=== PATIENT | female | born 1950 | race Caucasian/White ===

== ENCOUNTER 2017-05-19 08:39 | Observation (INO) ==
[2017-05-19] MEDS ORDERED: Aspirin 81 MG TAB.CHEW PO ONE (08:51)
[2017-05-19] MEDS ORDERED: Nitroglycerin 0.4 MG TAB.SUBL SL ONE (08:51)
[2017-05-19 09:10] LABS: Hematocrit 41.5 % (35.3-44.9); Hemoglobin 14.1 g/dL (11.5-15.4); Immature Platelets 5.9 % (1.1-6.1); Mean Corpuscular Hemoglobin 31.5 pg (28.0-33.3); Mean Corpuscular Volume 92.6 fL (83.0-100.0); Mean Platelet Volume 10.6 fL (9.4-12.4); Platelet Count 223 K/mcL (140-400); Red Blood Count 4.48 M/mcL (3.82-4.97); Red Cell Distribution Width 12.5 % (11.5-14.5)
[2017-05-19 09:14] LABS: Prothrombin Time 10.2 Seconds (9.4-12.1)
[2017-05-19 09:17] LABS: Activated Partial Thrombo Time 25.6 Seconds (26.0-36.0)
[2017-05-19 09:22] LABS: BUN/Creatinine Ratio 9 (6-26); Blood Urea Nitrogen 7 mg/dL (7-20); Calcium 9.6 mg/dL (8.6-10.8); Carbon Dioxide 20 mEq/L (19-29); Chloride 110 mEq/L (98-109); Glucose 106 mg/dL (70-99); Osmolality,Calculated 286 (280-300); Potassium 4.2 mEq/L (3.5-4.5); Sodium 139 mEq/L (136-145); eGFR For African Americans > 60 (> 60); eGFR For Non-African Americans > 60 (> 60)
[2017-05-19 09:25] LABS: Albumin 3.4 g/dL (3.5-5.0); Bilirubin,Direct 0.2 mg/dL (0.0-0.5); Bilirubin,Indirect 0.4 mg/dL (0.0-1.2); Bilirubin,Total 0.6 mg/dL (0.2-1.2); Globulin 3.3 g/dL (2.4-3.5); Total Protein 6.7 g/dL (6.0-8.3)
--- NOTE | 2017-05-19 09:35 | Emergency Department Note ---
Disposition Clinical Impression: Elevated lipase Chest pain Qualifiers: Chest pain type: unspecified Qualified Code(s): R07.9 - Chest pain, unspecified Disposition: Admitted As Inpatient Condition: Fair Time of Disposition: 10:00 Chest Pain HPI - General Chief Complaint: ED Chest Pain Stated Complaint: chest pain Time Seen by Provider: 05/19/17 08:40 Source: patient Limitations: no limitations Vital Signs Reviewed: Yes Nursing Notes Reviewed: Yes - History of Present Illness HPI Narrative: Patient is a 66-year-old female who presents to [facility] ED with a chief complaint of chest pain. States it is located in the epigastric region and she had woken up with a burning sensation that then radiated up into her chest and up her neck. She states she stood up and the pain intensified. She also had some nausea, no vomiting. Chest pain has been persistent. Past medical history significant for CAD with 3 stents. States last time she followed up with a interpreter translator was approximately 3 years ago. She is has not had any testing done since then. States she takes a daily baby aspirin and put a grill. No other blood thinning medications. Denies any abdominal pain, problems with urination or bowel movements. No recent fevers, chills, cough, nasal congestion. Pt complaint: chest pain Onset (ago): hour(s) Duration: constant Onset: during rest Pain Location: substernal Severity: moderate Severity scale (1-10): 3 Quality: aching Pain Radiation: LUE Improves with: nitroglycerin Worsens with: nothing Associated symptoms: Reports: nausea. Denies: dyspnea, fever, cough Treatments prior to arrival chest pain: aspirin (81mg) - Related Data Home Medications Medication Instructions Recorded Confirmed Aspirin Enteric Coated [Aspirin EC] 81 mg PO DAILY 05/19/17 05/19/17 Cholecalciferol (Vitamin D3) 2,000 unit PO DAILY 05/19/17 05/19/17 [Vitamin D] Clopidogrel [Plavix] 75 mg PO DAILY 05/19/17 05/19/17 Glucosamine Sulfate Dipot Chlr 2,000 mg PO DAILY 05/19/17 05/19/17 [Glucosamine] Isosorbide MONOnitrate (24 HR) 30 mg PO DAILY 05/19/17 05/19/17 [Imdur] Lisinopril [Zestril] 5 mg PO DAILY 05/19/17 05/19/17 Meloxicam [Mobic] 15 mg PO DAILY PRN 05/19/17 05/19/17 Metoprolol [Lopressor] 12.5 mg PO BID 05/19/17 05/19/17 Multivitamin [Multivitamins] 1 each PO DAILY 05/19/17 05/19/17 Nitroglycerin [Nitrostat] 0.4 mg SL Q5M 05/19/17 05/19/17 [place]-3/Dha/Epa/Fish Oil [Fish Oil 1,000 mg PO DAILY 05/19/17 05/19/17 1,000 mg Softgel] Omeprazole [PriLOSEC] 20 mg PO DAILY 05/19/17 05/19/17 Pravastatin Sodium [Pravachol] 40 mg PO HS 05/19/17 05/19/17 Zoledronic Acid (Reclast) [Reclast 5 mg IV [id number] 05/19/17 05/19/17 Premix 5 MG/100 ML] Allergies Allergy/AdvReac Type Severity Reaction Status Date / Time No Known Allergies Allergy Verified 04/22/17 15:28 All systems ED: reviewed and negative except as stated. Chest Pain PMH - Past Medical History Medical history: Reports: COPD, myocardial infarction Surgical history: Reports: non-contributory Psychiatric history: Reports: no psych history - Social History Smoking Status: Never smoker Alcohol use: Reports: none Drug use: Reports: none Physical Exam CONSTITUTIONAL: Well-appearing; well-nourished; A&O X 3, in no apparent distress HEAD: Normocephalic; atraumatic EYES: PERRL, no scleral icterus NOSE: The nose is normal in appearance without rhinorrhea NECK: No JVD or distended neck veins RESP: Normal chest excursion with respiration; breath sounds clear and equal bilaterally; no wheezes, rhonchi, or rales CARD: Regular rhythm, without murmurs, rub or gallop ABD: Non-distended; mild epigastric abd pain, soft, without rigidity, rebound or guarding,no pulsatile mass CHEST: No pain with palpation SKIN: Normal for age and race; warm and dry without diaphoresis ; no apparent lesions EXTREMITIES: Pulses are 2 plus and equal times 4 extremities, no peripheral edema or calf muscle pain - General Limitations: no limitations General appearance: alert, in no apparent distress Course Course Narrative: Patient seen and examined. Chest pain that started this morning at approximately 6 AM. Still having chest pain at this time. Aspirin and nitroglycerin ordered. Labs, EKG, chest x-ray ordered. We will reassess. - Reevaluation(s) Reevaluation #1: Patient did have some mild improvement with the nitroglycerin trial. However her pain did come back. We decided to place her on a nitro drip. Upon reassessment, her chest pain was gone. We will go ahead and admit for chest pain, rule out ACS. She also had a mildly elevated lipase at 112. Suspect this could be contributing to her symptoms as well. I discussed with hospitalist Dr. Madsen who has accepted patient for admission. Time: 10:00 Vital Signs Temperature 98.2 F 05/19/17 08:46 Pulse Rate 75 05/19/17 08:46 Respiratory Rate 18 05/19/17 08:46 Blood Pressure 180/105 05/19/17 08:46 O2 Sat by Pulse Oximetry 97 05/19/17 08:46 Temperature 98.2 F 05/19/17 08:46 Pulse Rate 63 05/19/17 09:45 Respiratory Rate 20 05/19/17 09:45 Blood Pressure 148/81 05/19/17 09:45 O2 Sat by Pulse Oximetry 93 05/19/17 09:45 Oxygen Delivery Oxygen Delivery Room Air Chest Pain - Medical Records Medical records reviewed: Yes I reviewed the patient's medical records. - Lab Data Lab results reviewed: Yes I reviewed the patient's lab results. Result diagrams: 05/19/17 09:03 05/19/17 09:03 Lab Results 05/19/17 05/19/17 05/19/17 Range/Units 09:03 09:03 09:03 WBC 4.9 (4.3-11.1) K/mcL RBC 4.48 (3.82-4.97) M/mcL Hgb 14.1 (11.5-15.4) g/dL Hct 41.5 (35.3-44.9) % MCV 92.6 (83.0-100.0) fL MCH 31.5 (28.0-33.3) pg MCHC 34.0 (31.6-35.5) g/dL RDW 12.5 (11.5-14.5) % Plt Count 223 (140-400) K/mcL MPV 10.6 (9.4-12.4) fL Seg Neutrophils % 36.0 % Lymphocytes % 30.0 % Monocytes % 26.0 % Eosinophils % 8.0 % Neutrophils # 1.8 (1.6-8.9) K/mcL Lymphocytes # 1.5 (0.6-4.6) K/mcL Monocytes # 1.3 (0.0-1.3) K/mcL Eosinophils # 0.4 (0.0-0.6) K/mcL Reactive Lymphocytes Present A (Not Present) Platelet Estimate Normal (Normal) Immature Plt Fraction 5.9 (1.1-6.1) % PT 10.2 (9.4-12.1) Seconds INR 1.0 APTT 25.6 L (26.0-36.0) Seconds Sodium (136-145) mEq/L Potassium (3.5-4.5) mEq/L Chloride (98-109) mEq/L Carbon Dioxide (19-29) mEq/L BUN (7-20) mg/dL Creatinine (0.57-1.11) mg/dL Est GFR ( Amer) (> 60) Est GFR (Non-Af Amer) (> 60) BUN/Creatinine Ratio (6-26) Glucose (70-99) mg/dL Calculated Osmolality (280-300) Calcium (8.6-10.8) mg/dL Total Bilirubin 0.6 (0.2-1.2) mg/dL Direct Bilirubin 0.2 (0.0-0.5) mg/dL Indirect Bilirubin 0.4 (0.0-1.2) mg/dL AST 29 (5-34) Units/L ALT 34 (0-55) Units/L Alkaline Phosphatase 80 (38-126) Units/L Troponin I (0-0.03) ng/mL Serum Total Protein 6.7 (6.0-8.3) g/dL Albumin 3.4 L (3.5-5.0) g/dL Globulin 3.3 (2.4-3.5) g/dL Albumin/Globulin Ratio 1.0 L (1.1-2.2) Lipase 112 H (8-78) Units/L 11/05/17 11/05/17 Range/Units 09:03 09:03 WBC (4.3-11.1) K/mcL RBC (3.82-4.97) M/mcL Hgb (11.5-15.4) g/dL Hct (35.3-44.9) % MCV (83.0-100.0) fL MCH (28.0-33.3) pg MCHC (31.6-35.5) g/dL RDW (11.5-14.5) % Plt Count (140-400) K/mcL MPV (9.4-12.4) fL Seg Neutrophils % % Lymphocytes % % Monocytes % % Eosinophils % % Neutrophils # (1.6-8.9) K/mcL Lymphocytes # (0.6-4.6) K/mcL Monocytes # (0.0-1.3) K/mcL Eosinophils # (0.0-0.6) K/mcL Reactive Lymphocytes (Not Present) Platelet Estimate (Normal) Immature Plt Fraction (1.1-6.1) % PT (9.4-12.1) Seconds INR APTT (26.0-36.0) Seconds Sodium 139 (136-145) mEq/L Potassium 4.2 (3.5-4.5) mEq/L Chloride 110 H (98-109) mEq/L Carbon Dioxide 20 (19-29) mEq/L BUN 7 (7-20) mg/dL Creatinine 0.74 (0.57-1.11) mg/dL Est GFR ( Amer) > 60 (> 60) Est GFR (Non-Af Amer) > 60 (> 60) BUN/Creatinine Ratio 9 (6-26) Glucose 106 H (70-99) mg/dL Calculated Osmolality 286 (280-300) Calcium 9.6 (8.6-10.8) mg/dL Total Bilirubin (0.2-1.2) mg/dL Direct Bilirubin (0.0-0.5) mg/dL Indirect Bilirubin (0.0-1.2) mg/dL AST (5-34) Units/L ALT (0-55) Units/L Alkaline Phosphatase (38-126) Units/L Troponin I 0.00 (0-0.03) ng/mL Serum Total Protein (6.0-8.3) g/dL Albumin (3.5-5.0) g/dL Globulin (2.4-3.5) g/dL Albumin/Globulin Ratio (1.1-2.2) Lipase (8-78) Units/L - Radiology Data Radiology results reviewed: Yes I reviewed the patient's radiology results. Chest X-Ray 05/19/17 08:51 IMPRESSION: No active cardiopulmonary disease D/ / Jai Dove MD / Jai Dove MD Interpreting Provider: Jai Dove MD - EKG Data EKG attestation: Yes I reviewed and interpreted this EKG. EKG results narrative: EKG done at 846 shows normal sinus rhythm with a rate of [address] elevation or depression. Normal axis. Unchanged from prior EKG done 2010. Heart Score - Score History: Moderately Suspicious EKG: Normal Age: Greater than 65 Risk Factors: Equal/Greater than 3 risk factor or history of atherosclerotic disease Troponin: Less than normal limit HEART Score Total: 5 Critical Care Time Critical Care Time: Yes Total Critical Care Time: 35 Attestation: Rectal care time managing patient's chest pain with nitro drip. Attestation Statement - Attestation Attestation: Patient was seen with resident physician. I reviewed the history, physical, assessment and plan, and agree with the findings. I also personally evaluated this patient and had [id number] time with this patient. 66-year-old female presents to the emergency department with chest pain since about 6 AM. Patient states the pain is lower portion of her chest, feels somewhat like indigestion, radiates up into her neck, and is similar to when she had a heart attack 5-7 years ago. Patient has 3 stents. Patient states that she has had some mild nausea with no vomiting. She denies fevers or chills. No shortness breath. On exam vital signs are stable. HEENT is unremarkable. Heart and lungs are normal. Abdomen is soft and nontender. Extremities unremarkable. Neurologically intact. Emergency [place] course. Patient was given a sublingual nitroglycerin which helped her chest pain. It returned shortly thereafter and she is placed on a nitro drip. She is also given aspirin. EKG did not reveal acute ischemic changes. Initial troponin was negative. An chest x-ray did not reveal acute abnormalities. Because the patient's risk factors she will be admitted to the hospital for his pain rule out and further evaluation and treatment. Hemodynamically she remained stable on the emergency department. Agree with resident physician assessment and plan. Vertigo care time 35 minutes managing patient's chest pain.
[2017-05-19 09:38] LABS: Eosinophils # 0.4 K/mcL (0.0-0.6); Lymphocytes # 1.5 K/mcL (0.6-4.6); Monocytes # 1.3 K/mcL (0.0-1.3); Neutrophils # 1.8 K/mcL (1.6-8.9); Platelet Estimate Normal (Normal); Reactive Lymphocytes Present (Not Present)
[2017-05-19] MEDS: Nitroglycerin 25 MG/250 ML INFUS..BTL IVC SCH (09:43)
[2017-05-19] MEDS ORDERED: Naloxone 0.4 MG/ML INJ IVP PRN (10:45)
[2017-05-19] MEDS ORDERED: Ondansetron 4 MG/2 ML VIAL IVP PRN (10:45)
--- NOTE | 2017-05-19 10:49 | Event Note ---
Date of Encounter: 05/19/17 Time of Encounter: 10:48 Patient seen and examined with nurse practitioner. Agree with this assessment and plan. Suspect gi origin of the pain, possibility pancreatitis. Lipase is is only 2 times upper limit of normal, however pain is suggestive of possibility of pancreatitis. Will check contrasted CT scan abdomen. she had prior cholecystectomy. We will also ruled out acute coronary syndrome as it is definitely in the differential. Repeat lipase, amylase CRP in am
--- NOTE | 2017-05-19 10:54 | Internal Med History&Physical ---
Date of Encounter: 05/19/17 Time of Encounter: 10:49 Assessment and Plan (1) Chest pain Current visit: Yes Status: Acute Epigastric and substernal chest pain with radiation from the right side to the back and right leg. Just has improved since adding nitroglycerin drip. Reporting chest pain 2/10, remains hypertensive systolic blood pressures 140s. Her chest pain also appears to be colicky, she has an elevated lipase of x2 normal limits, continues to have nausea, no vomiting. I suspect chest pain could also be of GI origin. Serial troponin Echocardiogram Continuous telemetry Continue aspirin, statin, beta maximiliano, Hugo, Plavix Continue to rule out GI causes Qualifiers: Chest pain type: unspecified Qualified Code(s): R07.9 - Chest pain, unspecified (2) Elevated lipase Current visit: Yes Status: Acute Continues to have colicky pain with radiation around right side to mid back. Lipase x2 upper limits of normal at 112 CT scan of the abdomen with oral and IV contrast Triglycerides CBC, CMP in the morning Nothing by mouth (3) CAD (coronary artery disease) Current visit: Yes Status: Acute Continue aspirin, statin and beta maximiliano Qualifiers: Coronary Disease-Associated Artery/Lesion type: [place] artery [place] vs. transplanted heart: [place] heart Associated angina: with unstable angina Qualified Code(s): I25.110 - Atherosclerotic heart disease of [place] coronary artery with unstable angina pectoris (4) HTN (hypertension) Current visit: Yes Status: Acute History of hypertension, continues to have elevated blood pressure throughout this. Continue HUGO inhibitor and beta maximiliano. Qualifiers: Hypertension type: essential hypertension Qualified Code(s): I10 - Essential (primary) hypertension (5) DVT prophylaxis Current visit: Yes Status: Acute Heparin 5000 units subcutaneous twice a day Internal Medicine - H&P: HPI Chief complaint: Chest pain, colicky pain elevated lipase Admitted From: Home Plans for Post Hospital Care: Home History of present illness: Ms. Muñoz is a 66 year old female with a PMH of COPD, and NC with 3 stents. Presents today to [facility] with ongoing chest pain. The patient reports that approximately 6am today while sitting in her chair she began experiencing shortness of breath and a squeezing pressure resembling her last NC. She reports that she stood up to go get her and the pressure increased and almost brought her to her knees. Upon initial presentation pain was 9/10 she states that the pain is substernal and epigastric radiating to the right side and around to the mid back and up into the right neck. She was given a sublingual nitroglycerin and chest pain improved or return shortly thereafter. She denies diaphoresis, fever, chills, fatigue, cough, edema. Troponin -0.00, lipase x2 Upper limits of normal Past Med Surg Social Fam HX - Past Medical History Medical history: COPD, myocardial infarction Psychiatric history: no psych history - Past Surgical History Surgical History: non-contributory - Social History Smoking Status: Never smoker Smokeless Tobacco Status: No Alcohol use: none Drug use: none - Family History Father Race: Family Member Ethnicity: Non- Hx Family Cardiac Disorders: Yes (NC at 45) Internal Medicine - H&P: Meds Aspirin Enteric Coated [Aspirin EC] 81 mg PO DAILY 05/19/17 [History] Cholecalciferol (Vitamin D3) [Vitamin D] 2,000 unit PO DAILY 05/19/17 [History] Clopidogrel [Plavix] 75 mg PO DAILY 05/19/17 [History] Glucosamine Sulfate Dipot Chlr [Glucosamine] 2,000 mg PO DAILY 05/19/17 [History ] Isosorbide MONOnitrate (24 HR) [Imdur] 30 mg PO DAILY 05/19/17 [History] Lisinopril [Zestril] 5 mg PO DAILY 05/19/17 [History] Meloxicam [Mobic] 15 mg PO DAILY PRN 05/19/17 [History] Metoprolol [Lopressor] 12.5 mg PO BID 05/19/17 [History] Multivitamin [Multivitamins] 1 each PO DAILY 05/19/17 [History] Nitroglycerin [Nitrostat] 0.4 mg SL Q5M 05/19/17 [History] [place]-3/Dha/Epa/Fish Oil [Fish Oil 1,000 mg Softgel] 1,000 mg PO DAILY 05/19/17 [History] Omeprazole [PriLOSEC] 20 mg PO DAILY 05/19/17 [History] Pravastatin Sodium [Pravachol] 40 mg PO HS 05/19/17 [History] Zoledronic Acid (Reclast) [Reclast Premix 5 MG/100 ML] 5 mg IV [id number] [History] 3 Allergy/AdvReac Type Severity Reaction Status Date / Time No Known Allergies Allergy Verified 04/22/17 15:28 All Systems PM: A 10-system review of systems was performed and is negative for pertinent findings except as documented above in the HPI. - Constitutional Constitutional: no chills, no fever(s), no night sweats - EENT Eyes: no change in vision, no discharge, no pain, no photophobia Ears: no ear discharge, no ear pain, no tinnitus Nose, mouth and throat: no dysphagia, no nasal discharge, no neck pain, no sore throat - Cardiovascular Cardiovascular ROS IM: as per HPI - Respiratory Respiratory: no cough, no dyspnea, no hemoptysis, no wheezing, no excessive phlegm production - Gastrointestinal Gastrointestinal: abdominal pain (Epigastric), nausea, no coffee ground emesis, no diarrhea, no hematemesis, no hematochezia, no melena, no vomiting - Genitourinary Genitourinary: no change in urinary stream, no dysuria, no flank pain, no hematuria - Musculoskeletal Musculoskeletal ROS IM: no numbness, no tingling - Integumentary Integumentary IM: no rash, no unusual bruising - Neurological Neurological ROS: no confusion, no convulsions, no focal weakness, no numbness, no tingling, no tremor(s) - Hematologic/Lymphatic Hematologic/Lymphatic: no easy bruising - Constitutional Vitals: Temp Pulse Resp BP Pulse Ox 98.2 F 63 20 148/81 93 05/19/17 08:46 05/19/17 09:45 05/19/17 09:45 05/19/17 09:45 05/19/17 09:45 General appearance: Present: A&O X 1, A&O X 3, obese, answers questions appropriately - Head Head exam: Present: atraumatic, normocephalic - Eye Eye exam: Present: EOMI, PERRL, conjuntiva pink, sclera anicteric Pupils: Present: PERRL - Neck Neck exam general surgery: Present: supple, trachea midline. Absent: lymphadenopathy - Respiratory Respiratory exam: Present: CTAB. Absent: accessory muscle use, rales, rhonchi, wheezes - Cardiovascular Cardiovascular exam: Present: RRR, +S1, +S2. Absent: diastolic murmur, gallop, rubs, systolic murmur - GI/Abdominal GI/Abdominal exam: Present: normal bowel sounds, soft, no peritoneal signs. Absent: distended, tenderness - Extremities Exam Extremities exam: Present: warm, radial pulses palpable and symmetrical. Absent : calf tenderness, cyanotic, pedal edema - Neurological Exam Neurological exam: Present: CN II-XII intact, oriented X3, no focal deficits. Absent: pronater drift, facial droop, speech deficit - Skin Skin exam: Present: dry, intact Internal Med - H&P Results - Labs CBC & Chem 7: 05/19/17 09:03 05/19/17 09:03 - EKG Data -: EKG Interpreted by Myself EKG shows normal: sinus rhythm Rate: normal - EKG Data Prior EKG available for review: yes When compared to previous EKG: there is no significant change Interpretation IM: normal EKG - Diagnostic Studies Chest x-ray Status: image reviewed by me Additional comments: No acute cardiopulmonary process
[2017-05-19 11:07] LABS: Triglycerides 166 mg/dL (< 150)
[2017-05-19] MEDS: 0.9 % Sodium Chloride 1,000 ML IVC SCH ×2 (13:00→22:06)
[2017-05-19] MEDS: *HR* Heparin 5,000 UNIT/ML VIAL SQ SCH (17:04)
[2017-05-20 05:57] LABS: Eosinophils # 0.1 K/mcL (0.0-0.6); Eosinophils % 3.6 %; Hematocrit 39.6 % (35.3-44.9); Immature Granulocytes % 0.3 % (0-4); Lymphocytes # 1.6 K/mcL (0.6-4.6); Lymphocytes % 40.8 %; Mean Corpuscular HGB Conc 32.8 g/dL (31.6-35.5); Mean Corpuscular Hemoglobin 31.3 pg (28.0-33.3); Mean Corpuscular Volume 95.4 fL (83.0-100.0); Mean Platelet Volume 11.1 fL (9.4-12.4); Monocytes # 0.6 K/mcL (0.0-1.3); Monocytes % 15.2 %; Neutrophils # 1.5 K/mcL (1.6-8.9); Platelet Count 213 K/mcL (140-400); Red Blood Count 4.15 M/mcL (3.82-4.97); Red Cell Distribution Width 12.7 % (11.5-14.5); Segmented Neutrophils % 39.1 %
[2017-05-20 06:12] LABS: Alanine Aminotransferase 27 Units/L (0-55); Albumin 2.9 g/dL (3.5-5.0); Alkaline Phosphatase 68 Units/L (38-126); Amylase 76 Units/L (25-125); Aspartate Amino Transferase 23 Units/L (5-34); BUN/Creatinine Ratio 11 (6-26); Bilirubin,Total 0.5 mg/dL (0.2-1.2); Blood Urea Nitrogen 8 mg/dL (7-20); Carbon Dioxide 22 mEq/L (19-29); Chloride 113 mEq/L (98-109); Cholesterol 159 mg/dL (< 200); Globulin 2.8 g/dL (2.4-3.5); Glucose 126 mg/dL (70-99); HDL Cholesterol 40 mg/dL (40-59); LDL Cholesterol,Calculated 80 mg/dL (0-99); Lipase 107 Units/L (8-78); Osmolality,Calculated 294 (280-300); Potassium 3.7 mEq/L (3.5-4.5); Sodium 142 mEq/L (136-145); Total Protein 5.7 g/dL (6.0-8.3); Triglycerides 195 mg/dL (< 150); eGFR For African Americans > 60 (> 60); eGFR For Non-African Americans > 60 (> 60)
[2017-05-20] MEDS: *HR* Heparin 5,000 UNIT/ML VIAL SQ SCH (06:16)
[2017-05-20] MEDS: 0.9 % Sodium Chloride 1,000 ML IVC SCH (08:26)
[2017-05-20] MEDS: Nitroglycerin 25 MG/250 ML INFUS..BTL IVC SCH (08:27)
[2017-05-20] MEDS ORDERED: Isosorbide MONOnitrate (24 HR) 30 MG TAB.ER.24H PO SCH (09:00)
[2017-05-20] MEDS ORDERED: Aspirin Enteric Coated 81 MG Tablet PO SCH (09:00)
[2017-05-20] MEDS ORDERED: Multivit/Ca/Min/Fe/FA 1 TAB TABLET PO SCH (09:00)
[2017-05-20 11:16] VITALS: BP 132/80
--- NOTE | 2017-05-20 14:33 | Discharge Summary ---
Date of Encounter: 05/20/17 Time of Encounter: 09:15 - Discharge Diagnosis (1) Elevated lipase Priority: Primary Status: Resolved (2) Chest pain Priority: Primary Status: Acute Qualifiers: Chest pain type: unspecified Qualified Code(s): R07.9 - Chest pain, unspecified (3) COPD (chronic obstructive pulmonary disease) Priority: Secondary Status: Chronic Qualifiers: COPD type: unspecified COPD Qualified Code(s): J44.9 - Chronic obstructive pulmonary disease, unspecified (4) CAD (coronary artery disease) Priority: Secondary Status: Chronic Qualifiers: Coronary Disease-Associated Artery/Lesion type: [place] artery [place] vs. transplanted heart: [place] heart Associated angina: without angina Qualified Code(s): I25.10 - Atherosclerotic heart disease of [place] coronary artery without angina pectoris (5) HTN (hypertension) Priority: Secondary Status: Chronic Qualifiers: Hypertension type: essential hypertension Qualified Code(s): I10 - Essential (primary) hypertension (6) Hyperlipidemia Priority: Secondary Status: Chronic Qualifiers: Hyperlipidemia type: pure hyperglyceridemia Qualified Code(s): E78.1 - Pure hyperglyceridemia - Discharge Medications Home Medications: Aspirin Enteric Coated [Aspirin EC] 81 mg PO DAILY 05/19/17 [History] Cholecalciferol (Vitamin D3) [Vitamin D3] 2,000 unit PO DAILY 05/19/17 [History] Clopidogrel [Plavix] 75 mg PO DAILY 05/19/17 [History] Glucosamine Sulfate Dipot Chlr [Glucosamine] 2,000 mg PO DAILY 05/19/17 [History ] Isosorbide MONOnitrate (24 HR) [Imdur] 30 mg PO DAILY 05/19/17 [History] Lisinopril [Zestril] 5 mg PO DAILY 05/19/17 [History] Meloxicam [Mobic] 15 mg PO DAILY PRN 05/19/17 [History] Metoprolol [Lopressor] 12.5 mg PO BID 05/19/17 [History] Multivitamin [Multivitamins] 1 each PO DAILY 05/19/17 [History] Nitroglycerin [Nitrostat] 0.4 mg SL Q5M 05/19/17 [History] [place]-3/Dha/Epa/Fish Oil [Fish Oil 1,000 mg Softgel] 1,000 mg PO DAILY 05/19/17 [History] Omeprazole [PriLOSEC] 20 mg PO DAILY 05/19/17 [History] Pravastatin Sodium [Pravachol] 40 mg PO HS 05/19/17 [History] Zoledronic Acid (Reclast) [Reclast Premix 5 MG/100 ML] 5 mg IV [id number] [History] Allergies/Adverse Reactions: 3 Allergy/AdvReac Type Severity Reaction Status Date / Time No Known Allergies Allergy Verified 04/22/17 15:28 Procedures/tests Complete & Pending: Procedures Performed prior 72 hours Category Date Time Status abdominal/pelvis CT with contrast [CT abd pelvis w iv Cat Scan 05/19/17 14:00 Completed and oral] [CT] Routine EV echocardiogram Routine Y 05/20/17 10:38 Completed - Notes to Outpatient Provider Echo WNL; please check nuclear stress test if patient continues to have chest pains. Date of admission: 05/19/17 10:19 Primary care physician: Juliana Otero DO Discharging clinician: Terri Loredo Anticipated date of discharge: 05/20/17 - Patient Status Disposition: Home, Self-Care Condition: Good Functional capacity at discharge: independent ambulation Overall status at discharge: patient is progressing back to baseline - Discharge Instructions Instructions: Chest Pain (DC) Follow Up With: Juliana Otero DO [Primary Care Provider] - 05/27/17 10:30 am Additional Instructions: F/up with PCP in 1-2 weeks - Diet and Activity Activity: resume usual activities as tolerated Diet: low fat, low cholesterol, low salt diet Hospital course: Ms. Muñoz is a 66 year old female with the above medical problems, admitted with chest pain. She was noted to have uncontrolled BP at admission and was started on IV Nitroglycerine drip with improvement in her symptoms and BP. Initial labs and EKG showed no acute abnormality. Serial Troponins remained negative. Echocadiogram showed preserved EF and mild TR, mild LV diastolic dysfunction. Patient is doing well today and remains asymptoamtic. BP remains stable after discontinuing Nitroglycerine drip and resuming home meds. SHe is otherwise stable for discharge. - Time Spent with Patient Total time spent providing and/or coordinating discharge services: Greater than 30 minutes (40 min) - Constitutional Vitals: Temp Pulse Resp BP Pulse Ox 98.1 F 61 18 132/80 94 05/20/17 11:15 05/20/17 11:15 05/20/17 11:15 05/20/17 11:15 05/20/17 11:15 General appearance: Present: A&O X 3, answers questions appropriately - Respiratory Respiratory exam: Present: CTAB. Absent: accessory muscle use, rales, rhonchi, wheezes - Cardiovascular Cardiovascular exam: Present: RRR, +S1, +S2. Absent: diastolic murmur, gallop, rubs, systolic murmur
--- NOTE | 2017-05-20 16:54 | Electrocardiograph Report ---
[address] [place] [address] Test Date: 2017-05-19 Pat Name: Marianne Muñoz Department: 103 Room: 2A44 Gender: F Card Folder: KEKE : 1950 Requested By: Neeta Mcbride Order Number: [id number] Reading MD: Magda Catalan Measurements Intervals [place] Rate: 68 P: -12 ID: [id number] QRS: 16 QRSD: 103 T: 23 QT: 383 QTc: 400 Interpretive Statements SINUS RHYTHM Electronically Signed On 05-20-2017 16:52:13 EST by Magda Catalan
== END 2017-05-20 15:04 | disposition home or self-care (01) ==
LOC: EMEROO 08:39 → 2ANU 08:39 → SUATTDRO 10:19 → 2ANU 10:24
PROVIDERS: ADMIT Nurse Practitioner; ATTEND Internal Medicine

== ENCOUNTER 2018-05-22 03:06 | Observation (INO) ==
--- NOTE | 2018-05-22 03:16 | Emergency Department Note ---
Disposition Clinical Impression: Chest pain Qualifiers: Chest pain type: unspecified Qualified Code(s): R07.9 - Chest pain, unspecified Disposition: Admitted As Inpatient Condition: Good Referrals: Juliana Otero DO [Primary Care Provider] - Forms: ED Satisfaction Letter Time of Disposition: 05:22 Chest Pain HPI - General Chief Complaint: ED Chest Pain Stated Complaint: CP Time Seen by Provider: 05/22/18 03:07 Source: patient, family () Mode of arrival: ambulatory Limitations: no limitations Vital Signs Reviewed: Yes Nursing Notes Reviewed: Yes - History of Present Illness HPI Narrative: 67-year-old female history of CAD with 3 stents, hypertension, hyperlipidemia presents emergency department with the complaint of chest pain. Patient was ambulatory through the EMS squad doors with her walking to the examination room the complaint chest pain. She states about 7 hours prior to arrival while sitting at rest watching TV she began feeling chest pressure to the midsternum with radiation to the back and up the chest to the jaw. Some associated shortness of breath and nausea no vomiting or diaphoresis noted. She states this feels similar to her prior heart attacks. Initially she thought it was indigestion and she took Nexium and toms but there was no relief. She states the pain is a constant pressure has gradually worsened. She has nitro glycerin available but did not take it. She took one baby aspirin is morning and 1 dose of [place] aspirin one hour prior to arrival. She denies any recent illness cough or congestion. Denies any syncope or leg swelling. No reported history of blood clots. Pt complaint: chest pain - Related Data Home Medications Medication Instructions Recorded Confirmed Aspirin Enteric Coated [Aspirin EC] 81 mg PO DAILY 05/19/17 05/22/18 Clopidogrel [Plavix] 75 mg PO DAILY 05/19/17 05/22/18 Glucosamine Sulfate Dipot Chlr 2,000 mg PO DAILY 05/19/17 05/22/18 [Glucosamine] Isosorbide MONOnitrate (24 HR) 30 mg PO DAILY 05/19/17 05/22/18 [Imdur] Lisinopril [Zestril] 5 mg PO DAILY 05/19/17 05/22/18 Meloxicam [Mobic] 15 mg PO DAILY PRN 05/19/17 05/22/18 Metoprolol [Lopressor] 12.5 mg PO BID 05/19/17 05/22/18 Multivitamin [Multivitamins] 1 each PO DAILY 05/19/17 05/22/18 Nitroglycerin [Nitrostat] 0.4 mg SL Q5M 05/19/17 05/22/18 [place]/Dha/Epa/Fish Oil [Fish Oil 1,000 mg PO DAILY 05/19/17 05/22/18 1,000 mg Softgel] Omeprazole [PriLOSEC] 20 mg PO BID 05/19/17 05/22/18 Pravastatin Sodium [Pravachol] 40 mg PO HS 05/19/17 05/22/18 Zoledronic Acid (Reclast) [Reclast 5 mg IV [id number] 05/19/17 05/22/18 Premix 5 MG/100 ML] Allergies Allergy/AdvReac Type Severity Reaction Status Date / Time No Known Allergies Allergy Verified 05/22/18 03:13 All systems ED: reviewed and negative except as stated. Review of Systems: As Per HPI Constitutional: Denies: fever, chills ENT ED: Denies: congestion Cardiovascular: Reports: chest pain. Denies: dyspnea on exertion, syncope Respiratory: Denies: cough, dyspnea Gastrointestinal: Denies: abdominal pain, nausea, vomiting Genitourinary: Denies: urgency, dysuria Musculoskeletal: Denies: back pain Integumentary: Denies: rash Neurological: Denies: headache Chest Pain PMH - Past Medical History Medical history: Reports: coronary artery disease, fibromyalgia, GERD, hyperlipidemia, hypertension, myocardial infarction Surgical history: Reports: angioplasty/stent, cholecystectomy, other Psychiatric history: Reports: no psych history - Social History Smoking Status: Never smoker Alcohol use: Reports: none Drug use: Reports: none Physical Exam - General Limitations: no limitations General appearance: alert, in no apparent distress, obese - Head Head exam: atraumatic, normocephalic, normal inspection - Eye Eye exam: Present: normal appearance, PERRL, EOMI - ENT ENT exam: normal exam, normal oropharynx, mucous membranes moist - Neck Neck exam: Present: normal inspection, full ROM, trachea midline - Chest Chest inspection: Present: normal inspection, symmetric chest wall rise, tenderness (Midsternum). Absent: rash - Respiratory Respiratory exam: Present: normal lung sounds bilaterally. Absent: respiratory distress, wheezes - Cardiovascular Cardiovascular exam: Present: regular rate, normal rhythm, normal heart sounds. Absent: tachycardia, systolic murmur, diastolic murmur - Expanded Cardiovascular Exam Peripheral pulses: 2+: radial (R), radial (L) - Abdominal Exam Abdominal exam: Present: soft, Non-Tender, normal bowel sounds. Absent: tenderness, distention, guarding, rebound, rigidity - Extremities Exam Extremities exam: Present: normal inspection, full ROM, normal capillary refill. Absent: tenderness, pedal edema, calf tenderness - Back Exam Back exam: Present: normal inspection, full ROM. Absent: tenderness, CVA tenderness (R), CVA tenderness (L), paraspinal tenderness, vertebral tenderness - Neurological Exam Neurological exam: Present: alert, oriented X3 - Psychiatric Psychiatric exam: Present: normal affect, normal mood - Skin Skin exam: Present: warm, dry, intact, normal color. Absent: rash, cyanosis, diaphoresis Course Course Narrative: Patient presents with the complaint of chest pain similar to prior CO. She has trialed Nexium Tums as well as aspirin without significant relief. Has not seen a beauty consultant in several years. On exam she appears in mild distress. Lungs are clear auscultation bilaterally. Equal radial pulses bilaterally. Heart's regular rate and rhythm. No pedal edema. Chest pain workup initiated. Will trial nitroglycerin and likely admit the patient - Reevaluation(s) Reevaluation #1: Patient's pain improved with a nitroglycerin times 3. Her initial troponin is less than 0.03. At this time it is recommended for her to be admitted for observation and monitoring work continued cardiac evaluation. Impression is chest pain evaluate for acute coronary syndrome. Time: 05:11 - Consultations Consultation #1: Spoke with on-call hospitalist ernie Bazzi to admit for chest pain. No fu rther orders at this time Time: 05:21 Vital Signs Temperature 97.8 F 05/22/18 03:07 Pulse Rate 70 05/22/18 03:07 Respiratory Rate 16 05/22/18 03:07 Blood Pressure 194/89 05/22/18 03:07 O2 Sat by Pulse Oximetry 98 05/22/18 03:07 Temperature 97.8 F 05/22/18 03:07 Pulse Rate 69 05/22/18 03:57 Respiratory Rate 20 05/22/18 03:57 Blood Pressure 152/79 05/22/18 03:57 O2 Sat by Pulse Oximetry 97 05/22/18 03:57 Oxygen Delivery Oxygen Delivery Room Air Chest Pain - MDM Narrative Medical decision making narrative: Patient was discussed with my attending physician who agrees with ED management and final disposition. They independently evaluated the patient. Please refer to their attestation to this encounter for additional information. This note was generated by [email or web address] voice recognition software and as a result gra mmatical or spelling errors may occur using this program. - Medical Records Medical records reviewed: Yes I reviewed the patient's medical records. - Lab Data Lab results reviewed: Yes I reviewed the patient's lab results. Result diagrams: 05/22/18 03:23 05/22/18 03:23 Lab Results 05/22/18 05/22/18 05/22/18 Range/Units 03:23 03:23 03:23 WBC 7.8 (4.3-11.1) K/mcL RBC 4.61 (3.82-4.97) M/mcL Hgb 14.3 (11.5-15.4) g/dL Hct 42.8 (35.3-44.9) % MCV 92.8 (83.0-100.0) fL MCH 31.0 (28.0-33.3) pg MCHC 33.4 (31.6-35.5) g/dL RDW 12.1 (11.5-14.5) % Plt Count 201 (140-400) K/mcL MPV 11.0 (9.4-12.4) fL Immature Gran % 0.3 (0-4) % Seg Neutrophils % 68.4 % Lymphocytes % 17.1 % Monocytes % 11.7 % Eosinophils % 1.7 % Basophils % 0.8 % Neutrophils # 5.3 (1.6-8.9) K/mcL Lymphocytes # 1.3 (0.6-4.6) K/mcL Monocytes # 0.9 (0.0-1.3) K/mcL Eosinophils # 0.1 (0.0-0.6) K/mcL Basophils # 0.1 (0.0-0.2) K/mcL PT 10.2 (9.4-12.1) Seconds INR 0.9 APTT 30.6 (26.0-36.0) Seconds Sodium 140 (136-145) mEq/L Potassium 3.9 (3.5-5.1) mEq/L Chloride 109 H (98-107) mEq/L Carbon Dioxide 24 (23-29) mEq/L BUN 11 (8-23) mg/dL Creatinine 0.75 (0.60-1.20) mg/dL Est GFR ( Amer) > 60 (> 60) Est GFR (Non-Af Amer) > 60 (> 60) BUN/Creatinine Ratio 15 (6-26) Glucose 110 H (70-105) mg/dL Calculated Osmolality 290 (280-300) Calcium 10.5 H (8.6-10.3) mg/dL Troponin I < 0.03 (< 0.04) ng/mL - Radiology Data Radiology results reviewed: Yes I reviewed the patient's radiology results. Chest X-Ray 05/22/18 03:10 IMPRESSION: No radiographic evidence of acute cardiopulmonary disease. D/ / Leon Patel / Leon Patel Interpreting Provider: Leon Patel - EKG Data EKG attestation: Yes I reviewed and interpreted this EKG. EKG results narrative: EKG performed 313 normal sinus rhythm 66 beats per minute, normal axis, good R wave progression, no ST elevation or depression, intervals appear within normal limits. Compared to prior EKG performed 05/19/2017 which shows similar consist ent findings. No acute ischemic changes. Heart Score - Score History: Moderately Suspicious EKG: Normal Age: Greater than 65 Risk Factors: Equal/Greater than 3 risk factor or history of atherosclerotic disease Troponin: Less than normal limit HEART Score Total: 5
[2018-05-22 03:38] LABS: Basophils # 0.1 K/mcL (0.0-0.2); Basophils % 0.8 %; Eosinophils # 0.1 K/mcL (0.0-0.6); Eosinophils % 1.7 %; Hematocrit 42.8 % (35.3-44.9); Hemoglobin 14.3 g/dL (11.5-15.4); Immature Granulocytes % 0.3 % (0-4); Lymphocytes # 1.3 K/mcL (0.6-4.6); Lymphocytes % 17.1 %; Mean Corpuscular HGB Conc 33.4 g/dL (31.6-35.5); Mean Corpuscular Volume 92.8 fL (83.0-100.0); Monocytes # 0.9 K/mcL (0.0-1.3); Monocytes % 11.7 %; Neutrophils # 5.3 K/mcL (1.6-8.9); Platelet Count 201 K/mcL (140-400); Red Blood Count 4.61 M/mcL (3.82-4.97); Red Cell Distribution Width 12.1 % (11.5-14.5); Segmented Neutrophils % 68.4 %
[2018-05-22] MEDS: Nitroglycerin 0.4 MG TAB.SUBL SL ONE ×3 (03:43→03:57)
[2018-05-22 03:46] LABS: INR 0.9; Prothrombin Time 10.2 Seconds (9.4-12.1)
[2018-05-22 03:49] LABS: Activated Partial Thrombo Time 30.6 Seconds (26.0-36.0)
[2018-05-22 04:00] LABS: BUN/Creatinine Ratio 15 (6-26); Blood Urea Nitrogen 11 mg/dL (8-23); Calcium 10.5 mg/dL (8.6-10.3); Carbon Dioxide 24 mEq/L (23-29); Chloride 109 mEq/L (98-107); Glucose 110 mg/dL (70-105); Osmolality,Calculated 290 (280-300); Potassium 3.9 mEq/L (3.5-5.1); Sodium 140 mEq/L (136-145); Troponin I < 0.03 ng/mL (< 0.04); eGFR For Non-African Americans > 60 (> 60)
[2018-05-22] MEDS ORDERED: Nitroglycerin 0.4 MG TAB.SUBL SL PRN (05:26)
[2018-05-22] MEDS ORDERED: Isovue-370 500 ML INFUS..BTL IV ONE (05:49)
[2018-05-22] MEDS ORDERED: Regadenoson 0.4 MG/5 ML SYRINGE IVP ONE ×2 (05:59→12:18)
[2018-05-22] MEDS ORDERED: *HR* Heparin 5,000 UNIT/ML VIAL SQ SCH (06:00)
[2018-05-22] MEDS ORDERED: GI Cocktail 40 ML EACH PO ONE (06:02)
--- NOTE | 2018-05-22 06:05 | Emergency Department Note ---
Disposition Clinical Impression: Chest pain Qualifiers: Chest pain type: unspecified Qualified Code(s): R07.9 - Chest pain, unspecified Disposition: Admitted As Inpatient Condition: Good General Adult HPI - General Chief complaint: ED Chest Pain Stated complaint: CP Time Seen by Provider: 05/22/18 03:07 Source: patient, family () Mode of arrival: ambulatory Limitations: no limitations Nursing Notes Reviewed: Yes Vital Signs Reviewed: Yes - History of Present Illness Pain Scale: 3 - Related Data Home Medications Medication Instructions Recorded Confirmed Aspirin Enteric Coated [Aspirin EC] 81 mg PO DAILY 05/19/17 05/22/18 Clopidogrel [Plavix] 75 mg PO DAILY 05/19/17 05/22/18 Glucosamine Sulfate Dipot Chlr 2,000 mg PO DAILY 05/19/17 05/22/18 [Glucosamine] Isosorbide MONOnitrate (24 HR) 30 mg PO DAILY 05/19/17 05/22/18 [Imdur] Lisinopril [Zestril] 5 mg PO DAILY 05/19/17 05/22/18 Meloxicam [Mobic] 15 mg PO DAILY PRN 05/19/17 05/22/18 Metoprolol [Lopressor] 12.5 mg PO BID 05/19/17 05/22/18 Multivitamin [Multivitamins] 1 each PO DAILY 05/19/17 05/22/18 Nitroglycerin [Nitrostat] 0.4 mg SL Q5M 05/19/17 05/22/18 [place]-3/Dha/Epa/Fish Oil [Fish Oil 1,000 mg PO DAILY 05/19/17 05/22/18 1,000 mg Softgel] Omeprazole [PriLOSEC] 20 mg PO BID 05/19/17 05/22/18 Pravastatin Sodium [Pravachol] 40 mg PO HS 05/19/17 05/22/18 Zoledronic Acid (Reclast) [Reclast 5 mg IV [id number] 05/19/17 05/22/18 Premix 5 MG/100 ML] Allergies Allergy/AdvReac Type Severity Reaction Status Date / Time No Known Allergies Allergy Verified 05/22/18 03:13 Constitutional: Denies: fever, chills ENT ED: Denies: congestion Cardiovascular: Reports: chest pain. Denies: dyspnea on exertion, syncope Respiratory: Denies: cough, dyspnea Gastrointestinal: Denies: abdominal pain, nausea, vomiting Genitourinary: Denies: urgency, dysuria Musculoskeletal: Denies: back pain Integumentary: Denies: rash Neurological: Denies: headache Past Medical History - Past Medical History Medical history: Reports: coronary artery disease, fibromyalgia, GERD, hyperlipidemia, hypertension, myocardial infarction Surgical history: Reports: angioplasty/stent, cholecystectomy, other Psychiatric history: Reports: no psych history - Social History Smoking Status: Never smoker Smokeless Tobacco Status: No Alcohol use: Reports: none Drug use: Reports: none Physical Exam - General Limitations: no limitations General appearance: alert, in no apparent distress, obese Course Vital Signs Temperature 97.8 F 05/22/18 03:07 Pulse Rate 70 05/22/18 03:07 Respiratory Rate 16 05/22/18 03:07 Blood Pressure 194/89 05/22/18 03:07 O2 Sat by Pulse Oximetry 98 05/22/18 03:07 Temperature 97.8 F 05/22/18 03:07 Pulse Rate 67 05/22/18 05:49 Respiratory Rate 20 05/22/18 05:49 Blood Pressure 154/78 05/22/18 05:49 O2 Sat by Pulse Oximetry 98 05/22/18 05:49 Oxygen Delivery Oxygen Delivery Room Air Medical Decision Making - Medical Records Medical records reviewed: Yes I reviewed the patient's medical records. - Lab Data Lab results reviewed: Yes I reviewed the patient's lab results. Result diagrams: 05/22/18 03:23 05/22/18 03:23 Lab Results 05/22/18 05/22/18 05/22/18 Range/Units 03:23 03:23 03:23 WBC 7.8 (4.3-11.1) K/mcL RBC 4.61 (3.82-4.97) M/mcL Hgb 14.3 (11.5-15.4) g/dL Hct 42.8 (35.3-44.9) % MCV 92.8 (83.0-100.0) fL MCH 31.0 (28.0-33.3) pg MCHC 33.4 (31.6-35.5) g/dL RDW 12.1 (11.5-14.5) % Plt Count 201 (140-400) K/mcL MPV 11.0 (9.4-12.4) fL Immature Gran % 0.3 (0-4) % Seg Neutrophils % 68.4 % Lymphocytes % 17.1 % Monocytes % 11.7 % Eosinophils % 1.7 % Basophils % 0.8 % Neutrophils # 5.3 (1.6-8.9) K/mcL Lymphocytes # 1.3 (0.6-4.6) K/mcL Monocytes # 0.9 (0.0-1.3) K/mcL Eosinophils # 0.1 (0.0-0.6) K/mcL Basophils # 0.1 (0.0-0.2) K/mcL PT 10.2 (9.4-12.1) Seconds INR 0.9 APTT 30.6 (26.0-36.0) Seconds Sodium 140 (136-145) mEq/L Potassium 3.9 (3.5-5.1) mEq/L Chloride 109 H (98-107) mEq/L Carbon Dioxide 24 (23-29) mEq/L BUN 11 (8-23) mg/dL Creatinine 0.75 (0.60-1.20) mg/dL Est GFR ( Amer) > 60 (> 60) Est GFR (Non-Af Amer) > 60 (> 60) BUN/Creatinine Ratio 15 (6-26) Glucose 110 H (70-105) mg/dL Calculated Osmolality 290 (280-300) Calcium 10.5 H (8.6-10.3) mg/dL Troponin I < 0.03 (< 0.04) ng/mL - Radiology Data Radiology results reviewed: Yes I reviewed the patient's radiology results. Chest X-Ray 05/22/18 03:10 IMPRESSION: No radiographic evidence of acute cardiopulmonary disease. D/ / Leon Patel / Leon Patel Interpreting Provider: Leon Patel - EKG Data EKG #1 EKG attestation: Yes I reviewed and interpreted this EKG. EKG results narrative: EKG shows a normal sinus rhythm with ventricular rate is 66. No acute ST se gment elevation or depression. Normal EKG. Attestation Statement - Attestation Attestation: I, Stefan Whitfield MD, personally evaluated this patient and discussed their management with the resident physician. I reviewed the resident's note and agree with the documented findings, medical decision making, and plan of care. 67-year-old female with known coronary artery disease and coronary artery stents presents to the emergency department with a complaint of substernal chest pain which started about 8 PM this evening. The pain is been constant since onset but is varied in intensity. She took aspirin at home with no relief. She had 3 nitroglycerin here with some improvement but not complete relief. Patient states the pain is just a dull discomfort and radiates straight through to her back. It intermittently radiates up into the anterior neck bilaterally. No radiation to the shoulders or down the arms. No shortness of breath. Some mild nausea. No vomiting. No diaphoresis. No palpitations. Patient states this does feel similar to her usual cardiac chest pain. On examination patient is a well-developed well-nourished well-appearing elderly female in no acute distress. She is alert and oriented 3. There is no cyanosis or diaphoresis. Chest is nontender to palpation. Breath sounds are clear and equal bilaterally. Heart regular rate and rhythm. Abdomen soft and nontender with normal bowel sounds. Labs reviewed. Troponin normal. EKG normal. No acute abnormality on chest x- ray. The hospitalist, Dr. Nicholas, was consulted and accepted admission of the patient.
--- NOTE | 2018-05-22 06:05 | Internal Med History&Physical ---
Date of Encounter: 05/22/18 Time of Encounter: 06:03 Internal Medicine - H&P: HPI Chief complaint: chest pain Admitted From: Home Plans for Post Hospital Care: Home History of present illness: Marianne Muñoz is a 67 year old woman with a history of coronary artery disease who had a myocardial infarction 7 years ago and underwent cardiac catheter with 3 stents placed and remains on dual antiplatelet therapy who presents today complaining of midsternal pain. She states that at approximately 8 PM she started to feel some heartburn and took antacids for this which did not provide relief and the pain persisted up until 2 AM at which point she could not bear it any longer and when she got up from bed she felt lightheaded and therefore decided to seek medical attention. She describes the pain as achy and radiating towards her back in between her shoulders. She says that since her PCI she has not had any issues with chest pain up until about 4 weeks ago where she says she has been having more heartburn episodes than usual and with a different characteristic. She took loading dose of aspirin at home before coming in. On arrival her blood pressure was 194/89 which she says is significantly hi gh for her as her systolic is usually in the 120s. She was given 3 tablets of nitroglycerin which she says has only provided modest relief. She will be admitted for further care. PMHx: CAD and HTN. Surgical history remarkable for rotator cuff repair. SHx: Previous smoker, denies illicit drug use. FHx: Premature CAD in father, brother and son. Review of systems: All systems reviewed and negative except as listed above in the HPI. Past Med Surg Social Fam HX - Past Medical History Medical history: coronary artery disease, fibromyalgia, GERD, hyperlipidemia, hypertension, myocardial infarction Additional medical history: hypothyroidism Psychiatric history: no psych history - Past Surgical History Surgical History: angioplasty/stent, cholecystectomy, other Additional surgical history: carpal tunnel. ovary removed. coronary stents. pilonidal cyst. R shoulder. R bicep tear repair - Social History Smoking Status: Never smoker Smokeless Tobacco Status: No Alcohol use: none Drug use: none - Family History Father Family Member Ethnicity: Non- Hx Family Cardiac Disorders: Yes ([place] at 45) Internal Medicine - H&P: Meds Aspirin Enteric Coated [Aspirin EC] 81 mg PO DAILY 05/19/17 [History] Clopidogrel [Plavix] 75 mg PO DAILY 05/19/17 [History] Glucosamine Sulfate Dipot Chlr [Glucosamine] 2,000 mg PO DAILY 05/19/17 [History] Isosorbide MONOnitrate (24 HR) [Imdur] 30 mg PO DAILY 05/19/17 [History] Lisinopril [Zestril] 5 mg PO DAILY 05/19/17 [History] Meloxicam [Mobic] 15 mg PO DAILY PRN 05/19/17 [History] Metoprolol [Lopressor] 12.5 mg PO BID 05/19/17 [History] Multivitamin [Multivitamins] 1 each PO DAILY 05/19/17 [History] Nitroglycerin [Nitrostat] 0.4 mg SL Q5M 05/19/17 [History] [place]-3/Dha/Epa/Fish Oil [Fish Oil 1,000 mg Softgel] 1,000 mg PO DAILY 05/19/17 [History] Omeprazole [PriLOSEC] 20 mg PO BID 05/19/17 [History] Pravastatin Sodium [Pravachol] 40 mg PO HS 05/19/17 [History] Zoledronic Acid (Reclast) [Reclast Premix 5 MG/100 ML] 5 mg IV [id number] 05/19/17 [History] Allergy/AdvReac Type Severity Reaction Status Date / Time No Known Allergies Allergy Verified 05/22/18 03:13 All Systems PM: A 10-system review of systems was performed and is negative for pertinent findings except as documented above in the HPI. - Constitutional Vitals: Temp Pulse Resp BP Pulse Ox 97.8 F 67 20 154/78 98 05/22/18 03:07 05/22/18 05:49 05/22/18 05:49 05/22/18 05:49 05/22/18 05:49 Exam: Vitals: Reviewed General: Well-developed white female sitting comfortably in bed in no acute distress Skin: Warm and supple. HEENT: Moist mucous membranes. No conjunctivae pallor. Neck: No lymphadenopathy. No JVD. No carotid bruits. No palpable thyroid. Chest: Normal thoracic expansion. Normal breath sounds. Clear to auscultation. Heart: Normal S1 & S2; rhythmic. No rubs or murmurs. Abdomen: Non-distended, soft and non-tender to palpation. No peritoneal reaction. Extremities: No clubbing, cyanosis or edema. No calf tenderness. Normal distal pulses. Neurological: Awake, alert and oriented to person, place and time. No focal deficits. Psych: Affect appropriate. Internal Med - H&P Results - Labs CBC & Chem 7: 05/22/18 03:23 05/22/18 03:23 Labs: Short CBC 05/22/18 Range/Units 03:23 WBC 7.8 (4.3-11.1) K/mcL Hgb 14.3 (11.5-15.4) g/dL Hct 42.8 (35.3-44.9) % Plt Count 201 (140-400) K/mcL Neutrophils # 5.3 (1.6-8.9) K/mcL BMP 05/22/18 03:23 Sodium 140 Potassium 3.9 Chloride 109 H Carbon Dioxide 24 BUN 11 Creatinine 0.75 Glucose 110 H Calcium 10.5 H Cardiac Enzymes 05/22/18 Range/Units 03:23 Troponin I < 0.03 (< 0.04) ng/mL - Impressions ITS Impressions Chest X-Ray 05/22/18 03:10 IMPRESSION: No radiographic evidence of acute cardiopulmonary disease. D/ / Leon Patel / Leon Patel Interpreting Provider: Leon Patel - Assessment and plan (1) Chest pain Current Visit: Yes Status: Acute Assessment and plan: Concerning for atypical angina in the setting of new onset uncharacteristic "heartburn" episodes. The pain she describes going to her mid-scapular region is equally concerning and this coupled with the very high BP on presentation prompts me ot order a CTA chest/abdomen to ensure there is no element of aortic dissection or aneurysm formation. Will also send a serum lipase level. Given her own history and strong family association with CAD, will monitor on telemetry, repeat EKG and keep NPO for stress test. Qualifiers: Chest pain type: unspecified Qualified Code(s): R07.9 - Chest pain, unspecified (2) CAD (coronary artery disease) Current Visit: Yes Status: Chronic Assessment and plan: Will continue dual antiplatelet therapy and high intensity statin. Qualifiers: Coronary Disease-Associated Artery/Lesion type: [place] artery [place] vs. transplanted heart: [place] heart Associated angina: with unstable angina Qualified Code(s): I25.110 - Atherosclerotic heart disease of [place] coronary artery with unstable angina pectoris (3) HTN (hypertension) Current Visit: Yes Status: Chronic Assessment and plan: Resume daily lisinopril. Qualifiers: Hypertension type: essential hypertension Qualified Code(s): I10 - Essential (primary) hypertension (4) DVT prophylaxis Current Visit: Yes Status: Acute Assessment and plan: SubQ heparin. - Time Spent With Patient Total time spent is greater than 50% in coordination of care (as documented) at patient's floor/unit and/or counseling patient: Greater than 35 minutes
[2018-05-22 06:30] LABS: Lipase 83 Units/L (11-82)
--- NOTE | 2018-05-22 08:08 | Event Note ---
Date of Encounter: 05/22/18 Time of Encounter: 08:06 Patient seen and exmined earlier this am by hospitalist. Currently patient is CP free. We are awaiting second troponin results for possible stress test this am .
[2018-05-22] MEDS ORDERED: Isosorbide MONOnitrate (24 HR) 30 MG TAB.ER.24H PO SCH (09:00)
[2018-05-22] MEDS ORDERED: Aspirin Enteric Coated 81 MG Tablet PO SCH (09:00)
[2018-05-22] MEDS ORDERED: Isosorbide MONOnitrate (24 HR) 30 MG TAB.ER.24H PO ONE (14:30)
--- NOTE | 2018-05-22 14:39 | Discharge Summary ---
- NOTES TO OUTPATIENT PROVIDER Notes to Outpatient Provider: Presented with CP and elevated BP - CTA chest/ abd -no aortic aneurysm or dissection -troponin are negative EKG with no ST T wave abnormalities - underwent cardiac stress test which was negative for any ischemia or infarct - increased metoprolol and imdur - advised to monitor BP Orders not resulted at time of discharge: Pending orders 05/22/18 05:27 ECG 12 lead ECG [ECG] Stat 05/22/18 10:42 NM jonny perf SPECT multi [NM] Routine Date of Encounter: 05/22/18 Time of Encounter: 14:32 - Discharge Diagnosis (1) Chest pain Priority: Primary Status: Acute Qualifiers: Chest pain type: unspecified Qualified Code(s): R07.9 - Chest pain, unspecified (2) CAD (coronary artery disease) Priority: Secondary Status: Chronic Qualifiers: Coronary Disease-Associated Artery/Lesion type: [place] artery [place] vs. transplanted heart: [place] heart Associated angina: with unstable angina Qualified Code(s): I25.110 - Atherosclerotic heart disease of [place] coronary artery with unstable angina pectoris (3) HTN (hypertension) Priority: Secondary Status: Chronic Qualifiers: Hypertension type: essential hypertension Qualified Code(s): I10 - Essential (primary) hypertension Hospital course: Ms. Muñoz is a 67 year old female past medical history of coronary disease who had an NV 7 years ago underwent cardiac catheter with 3 stents placed is on antiplatelet therapy came in complaining of midsternal chest pain/heartburn describing pains including radiating toward her back. She did have elevated blood pressure on presentation she underwent a CTA which was negative for any aneurysm dissection. Troponins were negative 3 EKG with no ischemic changes she did undergo a cardiac stress test which was negative for any ischemia or infarction. Did increase her metoprolol as well as her Imdur for better blood pressure control. She has not had any more chest pain during this admission. Advised patient to follow-up with primary care provider and to monitor blood pressure and keep a log. She may benefit from outpatient EGD. She will be given prescription for Imdur 60 mg daily as well as metoprolol 25 mg by mouth twice a day she is hemodynamically stable this time is ready for discharge. - Time Spent with Patient Total time spent providing and/or coordinating discharge services: - Discharge Medications Prescriptions: Isosorbide MONOnitrate (24 HR) [Imdur] 60 mg PO DAILY #30 tab.er.24h Home Medications: Aspirin Enteric Coated [Aspirin EC] 81 mg PO DAILY 05/19/17 [History] Clopidogrel [Plavix] 75 mg PO DAILY 05/19/17 [History] Lisinopril [Zestril] 5 mg PO DAILY 05/19/17 [History] Meloxicam [Mobic] 15 mg PO DAILY PRN 05/19/17 [History] Multivitamin [Multivitamins] 1 each PO DAILY 05/19/17 [History] Nitroglycerin [Nitrostat] 0.4 mg SL Q5M 05/19/17 [History] [place]-3/Dha/Epa/Fish Oil [Fish Oil 1,000 mg Softgel] 1,000 mg PO DAILY 05/19/17 [History] Omeprazole [PriLOSEC] 20 mg PO BID 05/19/17 [History] Pravastatin Sodium [Pravachol] 40 mg PO HS 05/19/17 [History] Zoledronic Acid (Reclast) [Reclast Premix 5 MG/100 ML] 5 mg IV [id number] 05/19/17 [History] Cholecalciferol (Vitamin D3) [Vitamin D3] 2,000 unit PO DAILY 05/22/18 [History] Fluticasone Propionate Nasal [Flonase] 100 mcg NS DAILY PRN 05/22/18 [History] Glucosamine HCl/Chondr Collins A Na [[facility] Glucosamine-Chondr Tablet] 2 each PO DAILY 05/22/18 [History] Isosorbide MONOnitrate (24 HR) [Imdur] 60 mg PO DAILY #30 tab.er.24h 05/22/18 [Rx] Metoprolol [Lopressor] 25 mg PO BID #30 05/22/18 [Rx] Allergies/Adverse Reactions: Allergy/AdvReac Type Severity Reaction Status Date / Time No Known Allergies Allergy Verified 05/22/18 03:13 Date of admission: 05/22/18 05:34 Primary care physician: Juliana Otero DO Discharging clinician: Chiquis Jones Anticipated date of discharge: 05/22/18 - Constitutional Vitals: Temp Pulse Resp BP Pulse Ox 99.5 F 89 22 181/78 96 05/22/18 13:38 05/22/18 13:38 05/22/18 13:38 05/22/18 13:38 05/22/18 13:38 General appearance: Present: A&O X 3 Exam: Vitals: Reviewed General: Well-developed white female sitting comfortably in bed in no acute distress Skin: Warm and supple. HEENT: Moist mucous membranes. No conjunctivae pallor. Neck: No lymphadenopathy. No JVD. No carotid bruits. No palpable thyroid. Chest: Normal thoracic expansion. Normal breath sounds. Clear to auscultation. Heart: Normal S1 & S2; rhythmic. No rubs or murmurs. Abdomen: Non-distended, soft and non-tender to palpation. No peritoneal reaction. Extremities: No clubbing, cyanosis or edema. No calf tenderness. Normal distal pulses. Neurological: Awake, alert and oriented to person, place and time. No focal deficits. Psych: Affect appropriate. - Head Head exam: Present: atraumatic, normocephalic - Eye Eye exam: Present: PERRL, conjuntiva pink, sclera anicteric Pupils: Present: PERRL - Neck Neck exam general surgery: Present: supple, trachea midline. Absent: lymphadenopathy - Respiratory Respiratory exam: Present: CTAB. Absent: accessory muscle use, rales, rhonchi, wheezes - Cardiovascular Cardiovascular exam: Present: RRR, +S1, +S2. Absent: diastolic murmur, gallop, rubs, systolic murmur - GI/Abdominal GI/Abdominal exam: Present: normal bowel sounds, soft, no peritoneal signs. Absent: distended, tenderness - Extremities Exam Extremities exam: Present: warm, radial pulses palpable and symmetrical. Absent: calf tenderness, cyanotic, pedal edema - Neurological Exam Neurological exam: Present: CN II-XII intact, oriented X3, no focal deficits. Absent: pronater drift, facial droop, speech deficit - Skin Skin exam: Present: dry, intact - Patient Status Disposition: Home, Self-Care Condition: Good Functional capacity at discharge: independent ambulation Overall status at discharge: patient is back to baseline - Discharge Instructions Instructions: Chest Pain (DC), Chronic Hypertension (DC) Follow Up With: Juliana Otero DO [Primary Care Provider] - 05/27/18 1:55 pm - Diet and Activity Activity: increase activity as tolerated Diet: low fat, low cholesterol
[2018-05-22 15:16] VITALS: BP 140/83
--- NOTE | 2018-05-23 16:55 | Electrocardiograph Report ---
[address] [place] [address] Test Date: 2018-05-22 Pat Name: Marianne Muñoz Department: [id number] Room: 3B44 Gender: F [employer]ician: : [id number] Requested By: Rodrigo Coleman Order Number: [id number] Reading MD: Rafa Padilla Measurements Intervals [place] Rate: 66 P: 49 NV: 157 QRS: 59 QRSD: 103 T: 34 QT: 419 QTc: 439 Interpretive Statements Sinus rhythm Electronically Signed On 05-23-2018 16:53:32 EST by Rafa Padilla
== END 2018-05-22 15:53 | disposition home or self-care (01) ==
LOC: 3BNU 03:06 → EMEROOARM 03:06 → 3BNU 06:35
PROVIDERS: ADMIT Internal Medicine; ATTEND Internal Medicine